=== PATIENT | male | born 1970 | race Caucasian/White ===

== ENCOUNTER → 2016-05-02 | Outpatient (CLI) | payer OTHER ==
[~2016-05-02] MED LIST: ACETAMINOPHEN-H1 TA2 PO; ALDACTONE25 M1 PO; AMLODIPINE BESYL5 MG PO; AMLODIPINE5 MG PO; AMOXICILLIN500 MG PO; ASPIRIN CHEWABL81 MG PO; Aquaphor T; BACTRIM DS 8001 TA1 PO; BP MED; Bactroban Oint22 GM T; CARVEDILOL6.25 MG PO; CIPROFLOXACIN500 MG PO; COREG12.5 M1 PO; COREG6.25 MG PO; FUROSEMIDE40 MG PO; GABAPENTIN100 M2 PO; HUMALOG100 U/ML SC; IMDUR SA60 M1 PO; INSULIN-HUMA100 U/ML SC; K-TAB20 MEQ PO; KEFLEX500 MG PO; KENALOG0.1% TP; LANTUS100 U/ML SC; LASIX20 MG PO; LASIX40 MG PO; LIPITOR20 MG PO; LISINOPRIL40 MG PO; MAXIPIME2 G1 IJ; MELOXICAM7.5 MG PO; METFORMIN HCL500 MG PO; METFORMIN500 MG PO; METFORMIN750 MG PO; NEURONTIN100 MG PO; NEXIUM40 MG PO; NOVOLIN 70100 UNIT/1 SC; OMEPRAZOLE D/R20 MG PO; POTASSIUM CHLO10 ME5 PO; SYNTHROID,LEVO75 MCG PO; ULTRAM50 MG PO; VICODIN 5/500 505 MG PO; VISTARIL50 MG PO; VITAMIN D5000 UNIT PO; VITAMIN D50000 I3 PO; [UNRECOGNIZED DRUG - SUPPLY] MC
[2016-05-02 07:59] LABS: ALBUMIN 3.5 gm/dl (3.1-4.5); BUN 20 mg/dl (7-24); CARBON DIOXIDE 29 mmol/L (21-32); CHLORIDE 100 mmol/L (98-107); EST GLOM FILT AFRICAN AMERICAN > 60 ml/min; GLUCOSE 241 mg/dL (65-99); PHOSPHOROUS 2.7 mg/dL (2.5-4.9); POTASSIUM 4.6 mmol/L (3.5-5.1); SODIUM 140 mmol/L (136-145)
== END | disposition home or self-care (01) ==
LOC: LAB 07:06
PROVIDERS: Internal Medicine Nephrology
DX: N18.6 End stage renal disease (principal)

== ENCOUNTER → 2016-05-12 | Day surgery (SDC) | payer OTHER ==
[2016-05-12 12:09] VITALS: BP 114/70
== END | disposition home or self-care (01) ==
LOC: SDC 05-05 03:06
DX: Z45.2 Encounter for adjustment and management of vascular access device (principal)

== ENCOUNTER 2016-11-10 17:24 | Inpatient (IN) | payer OTHER ==
[~2016-11-10] VITALS: Ht 167.6 cm; Wt 197.5 kg
--- NOTE | ~2016-11-10 | CON ---
[place], [place] REPORT OF CONSULTATION NAME: LAVINIA GOODRICH UNIT #: [id number] ROOM: 424 DOCTOR: ADAIR DAN,JULY BIRTHDATE: [birth year] DOS: 11/11/2016 HISTORY OF PRESENT ILLNESS: This is a patient who is admitted from home with temperature of 103, left leg swelling, pain and redness over the last 3-4 days. ID is consulted for left leg cellulitis. Most of history is obtained from the chart, some obtained from the patient, as his speech is very difficult to understand. He has had a prior history of cellulitis. He was hospitalized in March and developed acute CHF exacerbation, was diuresed and suffered acute kidney injury. He was temporary on hemodialysis, for which he was transferred to [facility], that has since improved. He is off dialysis. His blood cultures are negative. He was started on Zosyn and vancomycin at the time of admission. PAST MEDICAL HISTORY: As above, as well as hypertension, hyperlipidemia, morbid obesity, COPD, on chronic O2, diabetes, mandibular surgery. SOCIAL HISTORY: He chews one to two cans of tobacco per day since he was a child. No alcohol. No illicit drug use. Nonsmoker. FAMILY MEDICAL HISTORY: Brother at age 52 from leukemia. Father at age of 38 from lung disease. There is also a family history of diabetes and heart disease. CURRENT MEDICATIONS: Include aspirin, Synthroid, Prilosec, Lipitor, Neurontin, insulin, vitamin D, Zosyn, vancomycin, heparin, Restoril, Zofran, Tylenol. LABORATORY DATA: WBC is 16.3, platelets 207. BUN 38, creatinine of 3.12. AST 62, ALT 41. REVIEW OF SYSTEMS: As above in history of present illness. He states he has been nauseated, has not eaten in approximately 5 days, that is improving. He has also had a few emesis. No diarrhea. No rash or itch. He has again left lower extremity redness, pain and swelling for the last several days as well as fever. Temp max here has been 103. He does have some shortness of breath. He is currently on BiPAP. He is on chronic O2 at home. No cough. Further review of systems is unremarkable. PHYSICAL EXAMINATION: VITAL SIGNS: Show temp 98.0, pulse 96, respirations 20, BP 155/118. GENERAL: A 46-year-old morbidly obese male, in no acute distress, nontoxic in appearance. HEAD, EYES, EARS, NOSE AND THROAT: Normocephalic. No thrush. Missing most of the teeth. NECK: Supple. LUNGS: Clear to auscultation bilaterally. Respirations even and unlabored. HEART: Difficult to auscultation given body habitus, but regular rhythm. No murmur appreciated. ABDOMEN: Large, soft, nontender, positive bowel sounds. EXTREMITIES: Right lower extremity +2 to 3 edema, left lower extremity +3 to 4 edema. Left lower extremity with redness and swelling, which extends to the [place], [place] REPORT OF CONSULTATION NAME: LAVINIA GOODRICH UNIT #: [id number] ROOM: [facility] DOCTOR: ADAIR DANJULY BIRTHDATE: [birth year] thigh. No open wounds. SKIN: Otherwise warm, dry, free of rashes. ASSESSMENT: Left lower extremity cellulitis. PLAN: Given his recent recovery from acute kidney injury and current creatinine of 3.5, I do not think vancomycin is a good idea at this point given the doses that would be needed to obtain adequate therapeutic levels on the patient. I discussed with pharmacy. Teflaro is available. We will change to Zosyn and vancomycin over to Teflaro. Case discussed with Dr. Jose Maguire. RODDY BORRERO CNP JOSE MAGUIRE MD CM:CONSTR:REPORT OF CONSULTATION 1726 11/12/16 0429 interface
--- NOTE | ~2016-11-10 | PROC NOTE ---
[place], [place] PROCEDURE NOTE NAME: LAVINIA GOODRICH UNIT #: [id number] ROOM: [place] [address] DOCTOR: LARISA HOGAN CRNA BIRTHDATE: [birth year] DOS: INTUBATION NOTE Call to intubate the patient for acute hypoxic respiratory failure. The patient on arrival was on oxygen via BiPAP with a saturation of 94%. On assessment, the patient with a very large habitus, weighing approximately 200 kilos, have a Mallampati 4 airway and appeared very anterior. In light of this, it was decided to do an awake fiberoptic intubation. Oropharynx anesthetized via local anesthetic with a combination of 5% lidocaine cream to the tongue and posterior tongue structures, 4% lidocaine, approximately 5 mL aerosolized to the posterior oropharynx and the nasopharynx. Topical 4% lidocaine pledget placed in the posterior tonsillar fossa with a Minesh forceps for complete numbing of the upper airway. The patient sedated with Versed 2 mg. Fiberoptic intubation accomplished without difficulty with a 7.5 mm ET tube. Tube secured in place at 22 cm at the lip. The patient with bilateral breath sounds. The patient oxygen saturation improving to 98%. The patient then sedated with propofol 50 mg and rocuronium 50 mg. The patient placed on a propofol sedation per the hospitalist. The patient tolerated the procedure well. LARISA HOGAN CRNA CM:PROCNOTE:PROCEDURE NOTE [id number] LARISA HOGAN CRNA
[2016-11-10 17:39] VITALS: BP 107/50
[2016-11-10 18:17] LABS: HEMATOCRIT 43.8 % (42.0-52.0); HEMOGLOBIN 13.3 g/dl (14.0-18.0); MEAN CELL VOLUME 82.6 fl (80.0-94.0); MEAN CORPUSCULAR HGB 25.1 pg (27.0-31.0); MEAN CORPUSCULAR HGB CONC 30.4 g/dl (33.0-37.0); MEAN PLATELET VOLUME 9.9 fl (9.6-12.3); PLATELET COUNT AUTOMATED 250 10*3/uL (130-400); RED CELL DISTRI WIDTH 15.9 % (0-14.5); WHITE BLOOD COUNT 16.5 10*3/uL (4.8-10.8)
[2016-11-10 18:36] LABS: ALBUMIN 3.1 gm/dl (3.1-4.5); BILIRUBIN, TOTAL 1.1 mg/dl (0.2-1.0); CKMB 0.5 ng/ml (0.5-3.6); POTASSIUM 3.8 mmol/L (3.5-5.1); TOTAL PROTEIN 7.7 gm/dL (6.4-8.2); TROPONIN I 0.031 ng/ml (<0.045)
[2016-11-10 18:38] LABS: HYPOCHROMIA SLIGHT; LYMPHOCYTE # 0.2 10*3/uL (1.3-4.4); MONOCYTE # 0.7 10*3/uL (0.1-1.0); NEUTROPHIL # 15.7 10*3/uL (2.3-7.9); NEUTROPHILS 95 % (47-73); PLATELET SUFFICIENCY NORMAL (NORMAL); POLYCHROMASIA SLIGHT; TOTAL CELLS COUNTED 100 #CELLS; VACUOLATION OF NEUTROPHILS SLIGHT
[2016-11-10 19:30] VITALS: BP 111/39
[2016-11-10 20:15] LABS: LA>2 REFLEX 2 HR DRAW NOW
[2016-11-10 21:40] VITALS: BP 123/51
[2016-11-10 21:45] VITALS: BP 106/54
[2016-11-11] VITALS: BP 141/58
[2016-11-11 01:30] VITALS: BP 108/69
[2016-11-11 04:30] VITALS: BP 114/83
[2016-11-11 07:31] LABS: HEMOGLOBIN 12.1 g/dl (14.0-18.0); MEAN CELL VOLUME 84.7 fl (80.0-94.0); MEAN CORPUSCULAR HGB CONC 29.5 g/dl (33.0-37.0); MEAN PLATELET VOLUME 9.9 fl (9.6-12.3); PLATELET COUNT AUTOMATED 207 10*3/uL (130-400); RED BLOOD COUNT 4.84 10*6/uL (4.50-5.90); RED CELL DISTRI WIDTH 16.3 % (0-14.5); WHITE BLOOD COUNT 16.3 10*3/uL (4.8-10.8)
[2016-11-11 07:45] LABS: HEMOGLOBIN A1c 11.7 % (4.8-5.6)
[2016-11-11 07:53] LABS: ALBUMIN 2.9 gm/dl (3.1-4.5); BILIRUBIN, TOTAL 0.8 mg/dl (0.2-1.0); MAGNESIUM 1.7 mg/dL (1.5-2.1); PHOSPHOROUS 6.9 mg/dL (2.5-4.9); POTASSIUM 4.5 mmol/L (3.5-5.1); TOTAL PROTEIN 7.3 gm/dL (6.4-8.2)
[2016-11-11 08:01] LABS: LYMPHOCYTE # 0.3 10*3/uL (1.3-4.4); NEUTROPHILS 92 % (47-73); PLATELET SUFFICIENCY NORMAL (NORMAL); TOTAL CELLS COUNTED 100 #CELLS
[2016-11-11 08:03] LABS: INTERNATIONAL NORM RATIO 1.1 (2.0-3.5); PROTHROMBIN TIME 11.6 SECONDS (9.0-12.4)
[2016-11-11] MEDS ORDERED: BASAGLAR K100 UNIT/1 SQ (10:48)
[2016-11-11 12:00] VITALS: BP 124/76
[2016-11-11 16:00] VITALS: BP 155/118
[2016-11-11 20:00] VITALS: BP 110/75
[2016-11-12] VITALS: BP 110/75
[2016-11-12 03:17] LABS: ABG CO2 CONTENT 23.9 mmol/L (23-27); ABG HCO3 21.8 mmol/l (22-26); ARTERIAL BLOOD GAS PO2 64.5 mmHg (80-90)
[2016-11-12 03:22] LABS: ABG BASE EXCESS -7.8 mmol/L (-2.0-2.0); ABG TEMPERATURE 100.3 F (98.0-99.0)
[2016-11-12 03:26] LABS: ARTERIAL BLOOD GAS PH 7.141 (7.35-7.45)
[2016-11-12 06:15] LABS: BASO % 0.2 % (0.0-1.0); HEMATOCRIT 40.7 % (42.0-52.0); HEMOGLOBIN 11.9 g/dl (14.0-18.0); IG # 0.2 10*3/uL (0.0-0.1); LYMPH # 0.4 10*3/uL (1.3-4.4); LYMPH % 3.6 % (27.0-41.0); MEAN CORPUSCULAR HGB 25.2 pg (27.0-31.0); MEAN CORPUSCULAR HGB CONC 29.2 g/dl (33.0-37.0); MEAN PLATELET VOLUME 10.1 fl (9.6-12.3); MONO # 0.9 10*3/uL (0.1-1.0); MONO % 7.3 % (3.0-9.0); NEUT # 10.8 10*3/uL (2.3-7.9); NEUT % 87.4 % (47.0-73.0); PLATELET COUNT AUTOMATED 179 10*3/uL (130-400); RED BLOOD COUNT 4.73 10*6/uL (4.50-5.90); RED CELL DISTRI WIDTH 16.5 % (0-14.5); WHITE BLOOD COUNT 12.3 10*3/uL (4.8-10.8)
[2016-11-12 06:30] LABS: ALBUMIN 2.6 gm/dl (3.1-4.5); PHOSPHOROUS 8.7 mg/dL (2.5-4.9); POTASSIUM 5.2 mmol/L (3.5-5.1)
[2016-11-12 07:52] LABS: BILIRUBIN NEGATIVE (NEGATIVE); BLOOD 1+ (NEGATIVE); CLARITY CLOUDY (CLEAR); COLOR YELLOW (YELLOW); GLUCOSE NEGATIVE (NEGATIVE); KETONE NEGATIVE (NEGATIVE); LEUKO ESTERASE NEGATIVE (NEGATIVE); NITRITE NEGATIVE (NEGATIVE); PROTEIN 2+ (NEGATIVE); SPECIFIC GRAVITY >= 1.030 (1.005-1.030); UROBILINOGEN 0.2 E.U./dl (0.2-1.0)
[2016-11-12 07:59] LABS: BACTERIA 1+
[2016-11-12 08:00] LABS: URINE REFLEX COMMENT YES (NO)
[2016-11-12 08:56] LABS: ABG CO2 CONTENT 23.1 mmol/L (23-27); ABG HCO3 21.2 mmol/l (22-26); ABG TEMPERATURE 98.1 F (98.0-99.0); ARTERIAL BLOOD GAS PO2 66.8 mmHg (80-90)
[2016-11-12 09:01] LABS: ABG BASE EXCESS -7.7 mmol/L (-2.0-2.0); ARTERIAL BLOOD GAS PH 7.17 (7.35-7.45)
[2016-11-12 10:25] LABS: ABG CO2 CONTENT 22.5 mmol/L (23-27); ABG HCO3 20.7 mmol/l (22-26)
[2016-11-12 10:29] LABS: ABG BASE EXCESS -7.8 mmol/L (-2.0-2.0)
[2016-11-12 10:30] LABS: ARTERIAL BLOOD GAS PH 7.185 (7.35-7.45)
[2016-11-12 12:00] VITALS: BP 91/50
== END 2016-11-12 13:50 | disposition short-term general hospital (02) | DRG 871 ==
LOC: ED 17:24 → EDHOLD 19:28 → 4E 19:38 → ICCU 11-12 09:10
PROVIDERS: Hospitalist; Internal Medicine; Physician Assistant; Student in an Organized Health Care Education/Training Program
PROC: 0BH17EZ Insertion of Endotracheal Airway into Trachea, Via Natural or Artificial Opening (ICD-10-PCS; principal; 2016-11-10)
PROC: 5A1935Z Respiratory Ventilation, Less than 24 Consecutive Hours (ICD-10-PCS; 2016-11-10)
DX: A41.9 Sepsis, unspecified organism (principal); N17.0 Acute kidney failure with tubular necrosis; J96.21 Acute and chronic respiratory failure with hypoxia; J96.22 Acute and chronic respiratory failure with hypercapnia; L03.116 Cellulitis of left lower limb; E87.1 Hypo-osmolality and hyponatremia; E66.2 Morbid (severe) obesity with alveolar hypoventilation; Z68.44 Body mass index [BMI] 60.0-69.9, adult; R65.20 Severe sepsis without septic shock; D64.9 Anemia, unspecified; Z71.6 Tobacco abuse counseling; K21.9 Gastro-esophageal reflux disease without esophagitis; E78.5 Hyperlipidemia, unspecified; E11.65 Type 2 diabetes mellitus with hyperglycemia; Z79.4 Long term (current) use of insulin; Z72.89 Other problems related to lifestyle; Z80.6 Family history of leukemia; Z83.6 Family history of other diseases of the respiratory system; Z83.3 Family history of diabetes mellitus; Z99.81 Dependence on supplemental oxygen; E11.51 Type 2 diabetes mellitus with diabetic peripheral angiopathy without gangrene; F17.220 Nicotine dependence, chewing tobacco, uncomplicated; Z79.899 Other long term (current) drug therapy; I11.0 Hypertensive heart disease with heart failure; I50.9 Heart failure, unspecified

== ENCOUNTER → 2017-02-23 | Day surgery (SDC) | payer OTHER ==
[~2017-02-23] VITALS: Ht 180.3 cm; Wt 157.3 kg
[~2017-02-23] MED LIST changes: +ACIDOPHILUS1 EAC4 PO; +ALDACTONE25 MG PO; +BASAGLAR K100 UNIT/1 SQ; +BUMETANIDE1 MG PO; +CIPRO500 MG PO; +COREG25 MG PO; +COUMADIN4 M2 PO; +COUMADIN5 M2 PO; +DAKIN'S473 M1 MC; +HUMALOG100 UNIT/2 SQ; +HUMULIN N100 UNIT/1 SQ; +LEVEMIR100 UNIT/1 SC; +LIPITOR40 MG PO; +MGO400 MG PO; +NEURONTIN300 MG PO; +NORVASC2.5 MG PO; +NORVASC5 MG PO; +OXYCODONE HCL10 M1 PO; +PAXIL20 M1 PO; +PROTONIX40 MG PO; +SANTYL30 GM TP; +STRESS B WITH1 EACH PO; +Synthroid,Lev100 MCG PO; +VITAMIN D350000 UNIT PO
--- NOTE | ~2017-02-23 | CON ---
[place], [place] REPORT OF CONSULTATION NAME: LAVINIA GOODRICH UNIT #: [id number] ROOM: DOCTOR: FREDA HARGROVEARNEL BIRTHDATE: [birth year] DOS: HISTORY OF PRESENT ILLNESS: The patient has presented with chief complaint of distress with existing gastrostomy tube to abdomen. The patient has been in fpc, has regained his swallow and activity and on regular diet. I have been asked for evaluation of patient for removal of PEG tube. PAST MEDICAL HISTORY: Morbid obesity, borderline anemia, Pickwickian syndrome, nicotine dependency despite renal insufficiency, cellulitis of lower extremities, venous insufficiency, dyslipidemia, hypertension, gastroesophageal reflux, sleep apnea as well, peripheral vascular disease and diabetes mellitus. PAST SURGICAL HISTORY: Mandibular surgery. SOCIAL HISTORY: Nicotine dependence, chewing tobacco, alcohol consumer. FAMILY HISTORY: Noncontributory. ALLERGIES: No known medication. MEDICATIONS: List has been reviewed. REVIEW OF SYSTEMS: HEENT: Denies double vision, blurred vision. RESPIRATORY: Denies acute shortness of breath at the present time. CARDIOVASCULAR: Denies acute chest pain. DIGESTIVE SYSTEM: Regain of swallow status post PEG tube. PHYSICAL EXAMINATION: GENERAL: Super-morbid obesity. HEENT: Head normocephalic, nontraumatic. Mouth and buccal mucosa benign. NECK: Supple, no thyromegaly, no cervical lymphadenopathy. CHEST: Symmetric anatomy, equal expansion. No wheeze. No rhonchi. HEART: Normal sinus rhythm, no gallop, no murmur. ABDOMEN: Morbidly obese, large, soft. No hepato-organomegaly. PEG tube is in place and agitated at the site. EXTREMITIES: Some stasis dermatitis and edema of 1+. NEUROLOGIC: Alert, oriented to time, place, person. Sensory and motor intact. Cranial nerves 2-12 intact. Agitating gastric tube and regain of swallow by patient to solid food. OTHER ADJUNCTIVE DIAGNOSES: As outlined in the paragraph of past medical and surgical history. IMPRESSION: Malfunctioning PEG tube, status post removal dressing of the site as identified above. PLAN AND DISCUSSION: At this stage, anterior abdominal wall aseptically was prepped with Betadine and the gastrostomy tube [place] 20 was percutaneously [place], [place] REPORT OF CONSULTATION NAME: LAVINIA GOODRICH UNIT #: [id number] ROOM: DOCTOR: FREDA HARGROVE,ARNEL BIRTHDATE: [birth year] pulled out. The site was saturated with Neosporin, pressure banding with dressing by physician performed. The patient to go back to the fpc. The patient to have dressing of the site every day until site heals and follow up as outpatient otherwise. Thank you very much indeed. ARNEL BARBA MD CM:CONSTR:REPORT OF CONSULTATION 1308 02/27/17 0411 interface
[2017-02-23 10:00] VITALS: BP 143/67
== END | disposition home or self-care (01) ==
LOC: SDC 02-19 10:15
DX: K94.23 Gastrostomy malfunction (principal); E66.01 Morbid (severe) obesity due to excess calories; E66.2 Morbid (severe) obesity with alveolar hypoventilation; Z68.42 Body mass index [BMI] 45.0-49.9, adult; I10 Essential (primary) hypertension; K21.9 Gastro-esophageal reflux disease without esophagitis; J44.9 Chronic obstructive pulmonary disease, unspecified; E11.9 Type 2 diabetes mellitus without complications; Z83.3 Family history of diabetes mellitus; Z80.9 Family history of malignant neoplasm, unspecified; Z87.891 Personal history of nicotine dependence

== ENCOUNTER 2017-03-02 10:40 | Inpatient (IN) | payer OTHER ==
[~2017-03-02] VITALS: Ht 182.8 cm; Wt 157.6 kg
--- NOTE | ~2017-03-02 | CON ---
[place], [place] REPORT OF CONSULTATION NAME: LAVINIA GOODRICH UNIT #: [id number] ROOM: 420 DOCTOR: TING HARGROVE,JOSE [place] BIRTHDATE: [birth year] DOS: 03/02/2017 ADDENDUM After reviewing the labs, x-rays, microbiology and chart, I agree with the above plans as described. We will follow the patient up clinically and adjust accordingly. JOSE MAGUIRE MD CM:CONSTR:REPORT OF CONSULTATION 1925 03/05/17 1104 interface
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
[~2017-03-02 10:40] MED LIST changes: -ACIDOPHILUS1 EAC4 PO; -COREG25 MG PO; -COUMADIN5 M2 PO; -DAKIN'S473 M1 MC; -HUMALOG100 UNIT/2 SQ; -HUMULIN N100 UNIT/1 SQ; -LEVEMIR100 UNIT/1 SC; -LIPITOR40 MG PO; -MGO400 MG PO; -OXYCODONE HCL10 M1 PO; -PROTONIX40 MG PO; -SANTYL30 GM TP; -STRESS B WITH1 EACH PO; -VITAMIN D350000 UNIT PO
[2017-03-02 11:00] VITALS: BP 122/69
[2017-03-02 11:09] LABS: BILIRUBIN NEGATIVE (NEGATIVE); BLOOD 2+ (NEGATIVE); CLARITY CLEAR (CLEAR); COLOR YELLOW (YELLOW); GLUCOSE NEGATIVE (NEGATIVE); KETONE NEGATIVE (NEGATIVE); LEUKO ESTERASE TRACE (NEGATIVE); NITRITE NEGATIVE (NEGATIVE); UROBILINOGEN 0.2 E.U./dl (0.2-1.0)
[2017-03-02 11:20] LABS: BACTERIA TRACE; RBC 16-20 rbc/hpf (0-2); YEAST 3+
[2017-03-02 11:22] LABS: BASO % 0.3 % (0.0-1.0); EOS # 0.2 10*3/uL (0.0-0.4); EOS % 1.7 % (1.0-4.0); HEMOGLOBIN 10.3 g/dl (14.0-18.0); LYMPH # 1.2 10*3/uL (1.3-4.4); LYMPH % 9.1 % (27.0-41.0); MEAN CELL VOLUME 88.6 fl (80.0-94.0); MEAN CORPUSCULAR HGB 28.5 pg (27.0-31.0); MEAN CORPUSCULAR HGB CONC 32.2 g/dl (33.0-37.0); MEAN PLATELET VOLUME 9.5 fl (9.6-12.3); MONO # 0.9 10*3/uL (0.1-1.0); MONO % 7.1 % (3.0-9.0); NEUT # 10.2 10*3/uL (2.3-7.9); NEUT % 81.3 % (47.0-73.0); PLATELET COUNT AUTOMATED 358 10*3/uL (130-400); RED BLOOD COUNT 3.61 10*6/uL (4.50-5.90); RED CELL DISTRI WIDTH 15.9 % (0-14.5); WHITE BLOOD COUNT 12.6 10*3/uL (4.8-10.8)
--- NOTE | 2017-03-02 11:27 | NUR ---
LA 2.8 DR CHAMBERLAIN NOTIFIED
[2017-03-02 11:37] LABS: ALKALINE PHOSPHATASE 101 U/L (45-117); BUN 19 mg/dl (7-24); CHLORIDE 100 mmol/L (98-107); CREATININE 0.95 mg/dL (0.70-1.30); POTASSIUM 4.1 mmol/L (3.5-5.1); SGOT/AST 16 IU/L (3-35); SGPT/ALT 29 U/L (12-78); SODIUM 136 mmol/L (136-145); TOTAL PROTEIN 7.7 gm/dL (6.4-8.2)
--- NOTE | 2017-03-02 15:04 | NUR ---
A 46, admitted to , under the services of TRIPP Lugo DO with a diagnosis of INFECTED DECUBITIS ULCER, UTI,SEVERE SEPSIS. Chief complaint is WOUND-SKIN DRAINAGE. Patient arrived via bed from ER. Monitor applied. Initial assessment completed. Vital signs taken and recorded. TRIPP LUGO DO notified of admission to the unit. Orders received. See assessment for past medical history, medications and allergies. Patient and/or family oriented to unit. [facility] visitation policy reviewed. Clothing/patient valuable form completed. HÉCTOR JOHNSON
[2017-03-02] MEDS ORDERED: COUMADIN5 M2 PO (15:36)
[2017-03-02] MEDS ORDERED: NORVASC2.5 MG PO (15:37)
[2017-03-02] MEDS ORDERED: NORVASC5 MG PO (15:38)
--- NOTE | 2017-03-02 15:42 | NUR ---
OFFICE STAFF WAS NOTIFIED OF WOUND CARE CONSULT. RESPONSE OF NOTIFICATION WAS LEFT MESSAGE ON ANSWERING SERVICE. HÉCTOR JOHNSON
--- NOTE | 2017-03-02 15:45 | NUR ---
DR CALLES NOTIFIED OF LACTIC ACID 4.2
--- NOTE | 2017-03-02 15:49 | NUR ---
PT WENT FOR CT
--- NOTE | 2017-03-02 15:52 | NUR ---
PHYSICIAN WAS NOTIFIED OF DR. RODDY BORRERO CONSULT. RESPONSE OF NOTIFICATION WAS SHE WAS ON FLOOR.. HÉCTOR JOHNSON
--- NOTE | 2017-03-02 15:55 | NUR ---
PER DR MARLI BOSE TO CONTINUE WOUND ORDERS FROM LONGTERM
[2017-03-02 16:00] VITALS: BP 113/87
[2017-03-02] MEDS ORDERED: MGO400 MG PO (16:01)
[2017-03-02] MEDS ORDERED: LIPITOR40 MG PO (16:01)
[2017-03-02] MEDS ORDERED: HUMULIN N100 UNIT/1 SQ (16:02)
[2017-03-02] MEDS ORDERED: VITAMIN D350000 UNIT PO (16:04)
[2017-03-02] MEDS ORDERED: ASPIRIN CHEWABL81 MG PO (16:05)
[2017-03-02] MEDS ORDERED: ACIDOPHILUS1 EAC4 PO (16:06)
[2017-03-02] MEDS ORDERED: LEVEMIR100 UNIT/1 SC (16:07)
[2017-03-02] MEDS ORDERED: HUMALOG100 UNIT/2 SQ (16:08)
--- NOTE | 2017-03-02 16:08 | NUR ---
PER DR CALLES HE ALREADY SPOKE WITH DR GARCIA AND I DO NOT NEED TO CALL HIM.
[2017-03-02] MEDS ORDERED: STRESS B WITH1 EACH PO (16:09)
[2017-03-02] MEDS ORDERED: OXYCODONE HCL10 M1 PO (16:09)
[2017-03-02] MEDS ORDERED: COREG12.5 M1 PO (16:11)
[2017-03-02] MEDS ORDERED: COREG25 MG PO (16:11)
--- NOTE | 2017-03-02 16:15 | NUR ---
DR CALLES NOTIFIED LACTIC ACID 2.5
[2017-03-02] MEDS ORDERED: DAKIN'S473 M1 MC (16:22)
[2017-03-02] MEDS ORDERED: SANTYL30 GM TP (16:23)
--- NOTE | 2017-03-02 16:23 | NUR ---
MEDS REVIEWED WITH NURSE WIGGINS FROM [facility]
[2017-03-02] MEDS ORDERED: PROTONIX40 MG PO (16:57)
[2017-03-02] MEDS ORDERED: NEURONTIN300 MG PO (16:59)
--- NOTE | 2017-03-02 17:02 | NUR ---
dr bar updated on changes to med list per a second list from [facility] lipitor changed to daily neurotin and protonix added levemeir dose changed from 30 to 13 vit d 3 changed to weekly
--- NOTE | 2017-03-02 18:00 | NUR ---
DR CALLES NOTIFIED LACTIC ACID 2.6
--- NOTE | 2017-03-02 18:11 | NUR ---
PER DR CALLES MAKE PT NPO AND HOLD COUMADIN.
[2017-03-02 18:12] LABS: INTERNATIONAL NORM RATIO 1.2 (2.0-3.5)
--- NOTE | 2017-03-02 18:38 | NUR ---
NORCO GIVEN FOR C/O PAIN TO RIGHT BUTTOCKS OF 10/30. WILL CONT TO MONITOR. CALL LIGHT IN REACH.
--- NOTE | 2017-03-02 18:54 | NUR ---
SANTIAGO CALLED FROM [facility] AND STATED THAT SHE WILL CALL WHEN THEY HAVE A BED.
[2017-03-02 20:00] VITALS: BP 136/63
--- NOTE | 2017-03-02 20:00 | NUR ---
LAB RESULTS AND ORDERS REVIEWED
[2017-03-03] VITALS: BP 139/75
--- NOTE | 2017-03-03 03:37 | NUR ---
JULIUS FROM [facility] CALLED AT IS TIME AND GAVE A BED FOR THIS PATIENT ON THE MEDICAL SURGICAL UNIT. ASI CALLED . LIFE SCIENCE RESEARCH ASSISTANT CALLED AND AWARE.
--- NOTE | 2017-03-03 03:44 | NUR ---
NURSE TO NURSE GIVEN TO JULIUS AT [facility].
--- NOTE | 2017-03-03 04:44 | NUR ---
Discharge instructions reviewed with patient/family. Patient receptive and verbalizes understanding. Follow-up care arranged. Written instructions given to patient/family. LAUREN RHODES
== END 2017-03-03 04:38 | disposition short-term general hospital (02) | DRG 871 ==
LOC: ED 10:40 → 4E 14:17 → EDHOLD 14:17 → 4E 14:29
PROVIDERS: Emergency Medicine; Student in an Organized Health Care Education/Training Program; ADMIT Internal Medicine
PROC: 0H9NXZZ Drainage of Left Foot Skin, External Approach (ICD-10-PCS; principal; 2017-03-02)
DX: A41.9 Sepsis, unspecified organism (principal); L89.314 Pressure ulcer of right buttock, stage 4; E44.0 Moderate protein-calorie malnutrition; E11.22 Type 2 diabetes mellitus with diabetic chronic kidney disease; I50.30 Unspecified diastolic (congestive) heart failure; E66.2 Morbid (severe) obesity with alveolar hypoventilation; Z68.45 Body mass index [BMI] 70 or greater, adult; N39.0 Urinary tract infection, site not specified; L03.116 Cellulitis of left lower limb; Z99.81 Dependence on supplemental oxygen; E11.65 Type 2 diabetes mellitus with hyperglycemia; R65.20 Severe sepsis without septic shock; E78.5 Hyperlipidemia, unspecified; I73.9 Peripheral vascular disease, unspecified; Z80.6 Family history of leukemia; Z83.6 Family history of other diseases of the respiratory system; K21.9 Gastro-esophageal reflux disease without esophagitis; D64.9 Anemia, unspecified; F17.200 Nicotine dependence, unspecified, uncomplicated; Z79.4 Long term (current) use of insulin; I87.2 Venous insufficiency (chronic) (peripheral); N19 Unspecified kidney failure

== ENCOUNTER 2017-03-20 14:09 | Emergency (ER) | payer OTHER ==
[~2017-03-20] VITALS: Ht 182.8 cm; Wt 161.0 kg
[~2017-03-20 14:09] MED LIST changes: +ACIDOPHILUS1 EAC4 PO; +COREG25 MG PO; +COUMADIN5 M2 PO; +DAKIN'S473 M1 MC; +HUMALOG100 UNIT/2 SQ; +HUMULIN N100 UNIT/1 SQ; +LEVEMIR100 UNIT/1 SC; +LIPITOR40 MG PO; +MGO400 MG PO; +OXYCODONE HCL10 M1 PO; +PROTONIX40 MG PO; +SANTYL30 GM TP; +STRESS B WITH1 EACH PO; +VITAMIN D350000 UNIT PO
[2017-03-20 16:22] LABS: BASO # 0.1 10*3/uL (0.0-0.1); BASO % 0.5 % (0.0-1.0); EOS # 0.4 10*3/uL (0.0-0.4); EOS % 3.5 % (1.0-4.0); HEMATOCRIT 33.7 % (42.0-52.0); HEMOGLOBIN 10.6 g/dl (14.0-18.0); LYMPH # 1.4 10*3/uL (1.3-4.4); LYMPH % 13.7 % (27.0-41.0); MEAN CELL VOLUME 90.6 fl (80.0-94.0); MEAN CORPUSCULAR HGB 28.5 pg (27.0-31.0); MEAN CORPUSCULAR HGB CONC 31.5 g/dl (33.0-37.0); MONO # 0.8 10*3/uL (0.1-1.0); MONO % 8.1 % (3.0-9.0); NEUT # 7.4 10*3/uL (2.3-7.9); NEUT % 73.6 % (47.0-73.0); PLATELET COUNT AUTOMATED 307 10*3/uL (130-400); RED BLOOD COUNT 3.72 10*6/uL (4.50-5.90); RED CELL DISTRI WIDTH 16.1 % (0-14.5); WHITE BLOOD COUNT 10.1 10*3/uL (4.8-10.8)
[2017-03-20 16:32] LABS: BUN 14 mg/dl (7-24); CHLORIDE 99 mmol/L (98-107); CREATININE 1.01 mg/dL (0.70-1.30); POTASSIUM 3.8 mmol/L (3.5-5.1); SODIUM 135 mmol/L (136-145)
[2017-03-20 22:00] LABS: INTERNATIONAL NORM RATIO 1.3 (2.0-3.5)
== END 2017-03-21 00:45 | disposition short-term general hospital (02) ==
LOC: ED 14:09
PROVIDERS: Emergency Medicine; Student in an Organized Health Care Education/Training Program
DX: L89.159 Pressure ulcer of sacral region, unspecified stage (principal); L02.31 Cutaneous abscess of buttock

== ENCOUNTER 2017-06-20 16:00 | Inpatient (IN) | payer OTHER ==
[~2017-06-20] VITALS: Ht 182.8 cm; Wt 172.5 kg
--- NOTE | ~2017-06-20 | PR ---
[place], [place] PROGRESS NOTE [id number] #: [id number] ROOM: 426 DOCTOR: ADAIR DAN,JULY BIRTHDATE: [birth year] DOS: 06/23/2017 SUBJECTIVE: The patient is a 46-year-old morbidly obese male who is being followed for a right lower leg cellulitis, now with group G strep bacteremia. Repeat blood cultures from June 21 remain sterile. Positive blood cultures from June 20 showed group G strep that is resistant to clindamycin with a penicillin DILAN of less than 0.01. He is currently on vancomycin and Zosyn. He was also started on Lamisil oral due to concern for tinea pedis. Right leg culture is growing abundant gram-positive cocci. His WBCs have been improving, they are down to 10.4. Last vancomycin trough was 19.4. He is alert and oriented. He has difficulty breathing when he lays flat. No cough. No nausea, vomiting or diarrhea. He is on O2 via nasal cannula. He is morbidly obese, continues with pain in the right leg. Limited mobility due to his morbid obesity. His max temperature in the last 24 hours has been 99.0. No rash or itch. No shaking chills. CURRENT MEDICATIONS: Include Zosyn, vancomycin, Lamisil oral, Lovenox, Protonix, insulin, Restoril, Zofran, milk of mag, Dulcolax. LABORATORY DATA: Cultures as reviewed above. WBCs 10.4, platelets 505. BUN 8, creatinine 0.73, AST 98, ALT 123. Hepatitis panel was negative. Albumin 2.2. PHYSICAL EXAMINATION: VITAL SIGNS: Temperature 99.0, pulse 72, respirations 20, BP 149/86: GENERAL: A 46-year-old morbidly obese male, nontoxic in appearance. HEAD, EYES, EARS, NOSE AND THROAT: Normocephalic. No thrush. LUNGS: Clear to auscultation bilaterally. Respirations even and unlabored. HEART: Regular rhythm. No murmur appreciated. He is on O2 via nasal cannula. ABDOMEN: Huge, soft, nontender. EXTREMITIES: With edema to bilateral lower extremities. Right lower extremity with +4 edema with erythema and flat bullae consistent with strep cellulitis. No other open wounds. He does not have onychomycosis, but does have signs of possible tinea pedis. ASSESSMENT: Group G strep septicemia due to right lower extremity cellulitis. PLAN: We will narrow the antibiotics to penicillin 4 million units q. 4 hours, change Lamisil oral to Lamisil cream. This is more effective for tinea pedis as well as Lamisil can affect his LFTs, up the vancomycin and Zosyn. Follow up on repeat blood cultures. Given the clinical appearance, I doubt that there is any abscess in the leg. Case discussed with Dr. Jose Maguire. ADDENDUM After reviewing the chart and labs, I agree with the above plans as described. We will follow the patient up clinically and adjust accordingly. [place], [place] PROGRESS NOTE NAME: LAVINIA GOODRICH UNIT #: [id number] ROOM: 426 DOCTOR: ADAIR DANJULY BIRTHDATE: [birth year] RODDY BORRERO CNP JOSE MAGUIRE MD CM:PNTRANS 1547 1737 RODDY BORRERO CNP 06/24/17 0312 interface
[2017-06-20 16:16] VITALS: BP 121/53
[2017-06-20 17:05] LABS: HEMATOCRIT 36.1 % (42.0-52.0); HEMOGLOBIN 11.1 g/dl (14.0-18.0); MEAN CELL VOLUME 83.4 fl (80.0-94.0); MEAN CORPUSCULAR HGB 25.6 pg (27.0-31.0); MEAN CORPUSCULAR HGB CONC 30.7 g/dl (33.0-37.0); MEAN PLATELET VOLUME 9.6 fl (9.6-12.3); PLATELET COUNT AUTOMATED 404 10*3/uL (130-400); RED BLOOD COUNT 4.33 10*6/uL (4.50-5.90)
[2017-06-20 17:23] LABS: ALBUMIN 2.4 gm/dl (3.1-4.5); ALKALINE PHOSPHATASE 160 U/L (45-117); BUN 9 mg/dl (7-24); CHLORIDE 92 mmol/L (98-107); CREATININE 0.92 mg/dL (0.70-1.30); POTASSIUM 3.2 mmol/L (3.5-5.1); SGOT/AST 163 IU/L (3-35); SGPT/ALT 113 U/L (12-78); SODIUM 130 mmol/L (136-145); TOTAL PROTEIN 8.9 gm/dL (6.4-8.2)
[2017-06-20 17:24] LABS: TROPONIN I < 0.015 ng/ml (<0.045)
[2017-06-20 17:25] LABS: INTERNATIONAL NORM RATIO 1.1 (2.0-3.5); TOTAL CELLS COUNTED 100 #CELLS
[2017-06-20 17:27] LABS: PLATELET SUFFICIENCY NORMAL (NORMAL); ROULEAUX SLIGHT
[2017-06-20] MEDS ORDERED: ALDACTONE25 M1 PO (18:11)
[2017-06-20] MEDS ORDERED: BUMETANIDE1 MG PO (18:11)
[2017-06-20] MEDS ORDERED: METFORMIN HCL500 MG PO (18:11)
[2017-06-20] MEDS ORDERED: AMLODIPINE BESYL5 MG PO (18:11)
[2017-06-20] MEDS ORDERED: CARVEDILOL6.25 MG PO (18:12)
[2017-06-20] MEDS ORDERED: NOVOLIN 70100 UNIT/1 SQ (18:12)
[2017-06-20] MEDS ORDERED: OMEPRAZOLE40 MG PO (18:12)
[2017-06-20] MEDS ORDERED: ATORVASTATIN CA40 M1 PO (18:12)
[2017-06-20] MEDS ORDERED: LANTUS SOL100 UNIT/1 SQ (18:13)
[2017-06-20] MEDS ORDERED: PAROXETINE HCL20 MG PO (18:13)
[2017-06-20 18:47] VITALS: BP 119/60
[2017-06-20 19:30] VITALS: BP 119/58
[2017-06-21 00:19] VITALS: BP 123/43
[2017-06-21 07:39] LABS: BASO % 0.2 % (0.0-1.0); EOS # 0.1 10*3/uL (0.0-0.4); EOS % 0.4 % (1.0-4.0); HEMATOCRIT 33.3 % (42.0-52.0); HEMOGLOBIN 9.9 g/dl (14.0-18.0); LYMPH # 0.6 10*3/uL (1.3-4.4); MEAN CELL VOLUME 85.4 fl (80.0-94.0); MEAN CORPUSCULAR HGB 25.4 pg (27.0-31.0); MEAN CORPUSCULAR HGB CONC 29.7 g/dl (33.0-37.0); MEAN PLATELET VOLUME 9.6 fl (9.6-12.3); MONO # 0.8 10*3/uL (0.1-1.0); MONO % 6.1 % (3.0-9.0); NEUT # 10.9 10*3/uL (2.3-7.9); NEUT % 86.3 % (47.0-73.0); PLATELET COUNT AUTOMATED 392 10*3/uL (130-400); RED CELL DISTRI WIDTH 16.3 % (0-14.5); WHITE BLOOD COUNT 12.6 10*3/uL (4.8-10.8)
[2017-06-21 07:56] LABS: BUN 9 mg/dl (7-24); CHLORIDE 96 mmol/L (98-107); CHOLESTEROL 99 mg/dL (<200); CREATININE 0.78 mg/dL (0.70-1.30); PHOSPHOROUS 3.1 mg/dL (2.5-4.9); POTASSIUM 3.2 mmol/L (3.5-5.1); SODIUM 134 mmol/L (136-145); TRIGLYCERIDES 162 mg/dl (<150); VLDL CHOLESTEROL 32 mg/dL (6-40)
[2017-06-21 08:00] VITALS: BP 130/76
[2017-06-21 08:04] LABS: HDL CHOLESTEROL 9 mg/dl (40-60); LDL CHOLESTEROL 58 mg/dL (9-159)
[2017-06-21 09:07] LABS: VITAMIN D, 25-HYDROXY 13.9 ng/mL (30-100)
[2017-06-21 12:00] VITALS: BP 130/86
[2017-06-21 12:04] LABS: ALBUMIN 2.1 gm/dl (3.1-4.5); ALKALINE PHOSPHATASE 132 U/L (45-117); BUN 9 mg/dl (7-24); CHLORIDE 96 mmol/L (98-107); POTASSIUM 3.2 mmol/L (3.5-5.1); SGOT/AST 87 IU/L (3-35); SGPT/ALT 85 U/L (12-78); SODIUM 134 mmol/L (136-145); TOTAL PROTEIN 7.6 gm/dL (6.4-8.2)
[2017-06-21 16:00] VITALS: BP 128/57
[2017-06-21 20:36] VITALS: BP 130/68
[2017-06-22 00:22] VITALS: BP 136/75
[2017-06-22 06:53] LABS: BASO % 0.2 % (0.0-1.0); EOS # 0.1 10*3/uL (0.0-0.4); EOS % 0.6 % (1.0-4.0); HEMATOCRIT 34.7 % (42.0-52.0); HEMOGLOBIN 9.9 g/dl (14.0-18.0); LYMPH # 0.6 10*3/uL (1.3-4.4); LYMPH % 5.7 % (27.0-41.0); MEAN CELL VOLUME 85.7 fl (80.0-94.0); MEAN CORPUSCULAR HGB 24.4 pg (27.0-31.0); MEAN CORPUSCULAR HGB CONC 28.5 g/dl (33.0-37.0); MEAN PLATELET VOLUME 9.4 fl (9.6-12.3); MONO # 0.6 10*3/uL (0.1-1.0); MONO % 5.5 % (3.0-9.0); NEUT # 9.2 10*3/uL (2.3-7.9); NEUT % 86.2 % (47.0-73.0); PLATELET COUNT AUTOMATED 468 10*3/uL (130-400); RED BLOOD COUNT 4.05 10*6/uL (4.50-5.90); RED CELL DISTRI WIDTH 16.2 % (0-14.5); WHITE BLOOD COUNT 10.6 10*3/uL (4.8-10.8)
[2017-06-22 07:05] LABS: HEPATITIS B SURFACE AG Negative (Negative); HEPATITIS C VIRUS ANTIBODY <0.1 s/co (0.0-0.9)
[2017-06-22 07:09] LABS: ALBUMIN 2.1 gm/dl (3.1-4.5); ALKALINE PHOSPHATASE 148 U/L (45-117); BUN 6 mg/dl (7-24); CHLORIDE 96 mmol/L (98-107); CREATININE 0.77 mg/dL (0.70-1.30); PHOSPHOROUS 2.6 mg/dL (2.5-4.9); POTASSIUM 3.7 mmol/L (3.5-5.1); SGOT/AST 80 IU/L (3-35); SGPT/ALT 93 U/L (12-78); SODIUM 135 mmol/L (136-145); TOTAL PROTEIN 8.1 gm/dL (6.4-8.2)
[2017-06-22 08:00] VITALS: BP 137/74
[2017-06-22 12:00] VITALS: BP 142/69
[2017-06-22 16:00] VITALS: BP 133/74
[2017-06-22 20:00] VITALS: BP 161/68
[2017-06-23] VITALS: BP 138/85
[2017-06-23 06:21] LABS: HEMATOCRIT 34.6 % (42.0-52.0); MEAN CELL VOLUME 86.7 fl (80.0-94.0); MEAN CORPUSCULAR HGB 25.1 pg (27.0-31.0); MEAN CORPUSCULAR HGB CONC 28.9 g/dl (33.0-37.0); MEAN PLATELET VOLUME 9.1 fl (9.6-12.3); PLATELET COUNT AUTOMATED 505 10*3/uL (130-400); RED BLOOD COUNT 3.99 10*6/uL (4.50-5.90); RED CELL DISTRI WIDTH 16.5 % (0-14.5); WHITE BLOOD COUNT 10.4 10*3/uL (4.8-10.8)
[2017-06-23 06:35] LABS: ALBUMIN 2.2 gm/dl (3.1-4.5); ALKALINE PHOSPHATASE 161 U/L (45-117); BUN 8 mg/dl (7-24); CHLORIDE 97 mmol/L (98-107); CREATININE 0.73 mg/dL (0.70-1.30); POTASSIUM 4.1 mmol/L (3.5-5.1); SGOT/AST 98 IU/L (3-35); SGPT/ALT 123 U/L (12-78); SODIUM 135 mmol/L (136-145)
[2017-06-23 07:37] LABS: BASOPHILS 1 % (0-1); PLATELET SUFFICIENCY HIGH (NORMAL); ROULEAUX MODERATE; TOTAL CELLS COUNTED 100 #CELLS; TOXIC GRANULATION SLIGHT
[2017-06-23 08:00] VITALS: BP 148/86
[2017-06-23 12:00] VITALS: BP 149/86
[2017-06-23 16:00] VITALS: BP 145/83
== END 2017-06-23 17:29 | disposition left against medical advice (07) | DRG 871 ==
LOC: ED 16:00 → 4E 18:18 → EDHOLD 18:18 → 4E 18:38
PROVIDERS: Hospitalist; Internal Medicine Nephrology; Physician Assistant; Student in an Organized Health Care Education/Training Program
DX: A41.9 Sepsis, unspecified organism (principal); E43 Unspecified severe protein-calorie malnutrition; L89.153 Pressure ulcer of sacral region, stage 3; L89.311 Pressure ulcer of right buttock, stage 1; I50.32 Chronic diastolic (congestive) heart failure; E87.1 Hypo-osmolality and hyponatremia; L03.115 Cellulitis of right lower limb; E66.2 Morbid (severe) obesity with alveolar hypoventilation; Z68.42 Body mass index [BMI] 45.0-49.9, adult; R74.0 Nonspecific elevation of levels of transaminase and lactic acid dehydrogenase [LDH]; E87.6 Hypokalemia; K21.9 Gastro-esophageal reflux disease without esophagitis; E78.5 Hyperlipidemia, unspecified; E11.65 Type 2 diabetes mellitus with hyperglycemia; L89.511 Pressure ulcer of right ankle, stage 1; L89.890 Pressure ulcer of other site, unstageable; F17.200 Nicotine dependence, unspecified, uncomplicated; E11.51 Type 2 diabetes mellitus with diabetic peripheral angiopathy without gangrene; D47.3 Essential (hemorrhagic) thrombocythemia; I11.0 Hypertensive heart disease with heart failure; E83.41 Hypermagnesemia; E87.8 Other disorders of electrolyte and fluid balance, not elsewhere classified; Z79.4 Long term (current) use of insulin; Z83.6 Family history of other diseases of the respiratory system; Z83.3 Family history of diabetes mellitus; Z82.49 Family history of ischemic heart disease and other diseases of the circulatory system; Z80.8 Family history of malignant neoplasm of other organs or systems; Z71.6 Tobacco abuse counseling

== ENCOUNTER 2017-12-29 15:04 | Inpatient (IN) | payer OTHER ==
[~2017-12-29] VITALS: Ht 182.8 cm; Wt 206.6 kg
--- NOTE | ~2017-12-29 | EKG ---
[place], [place] ELECTROCARDIOGRAM REPORT NAME: LAVINIA GOODRICH UNIT #: [id number] ROOM: 508 DOCTOR: LAMAR DRAFT REPORT BIRTHDATE: [birth year] [facility] Test Date: 2017-12-29 Test Time: 15:34:47 Pat Name: LAVINIA GOODRICH Department: Room: 508 Gender: M Handwriting Expert: LEONA : 1970 Requested By: DANY LLOYD Order Number: [id number] Reading MD: Pamela Carvalho MD Measurements Intervals [place] Rate: 86 P: 12 [place]: 166 QRS: 3 QRSD: 114 T: 61 QT: 395 QTc: 473 Interpretive Statements Sinus rhythm Unifocal ventricular premature complexes Incomplete left bundle branch block Low voltage, precordial leads Artifact in lead(s) I,III,aVR,aVL,aVF and baseline wander in lead(s) I,III,aVR,aVL,aVF,V1,V2,V3,V4,V5,V6 Electronically Signed On 12-30-2017 6:29:28 PDT by Pamela Carvalho MD CM:EKGRPT:ELECTROCARDIOGRAM REPORT 1534 0629 DANY LEYVA DRAFT REPORT DANY LLOYD DO
--- NOTE | ~2017-12-29 | PR ---
[place], [place] PROGRESS NOTE NAME: LAVINIA GOODRICH [facility] #: [id number] UNIT #: [id number] ROOM: 508 DOCTOR: MATIAS MORTENSEN DPM BIRTHDATE: [birth year] DOS: 12/31/2017 SUBJECTIVE: This patient is seen today for chronic venous insufficiency and venous leg ulcers. The patient states he has had problems with his legs for quite some time. [facility] hospital. He states they have been trying to get fluid off of him while he is in the hospital. OBJECTIVE: EXTREMITIES: Pedal pulses are difficult to palpate due to dependent edema bilaterally. There is 3+ pitting edema noted in bilateral lower extremities. Negative Homans sign bilaterally. There is no erythema or increased temperature changes bilaterally consistent with chronic venous insufficiency including pigment changes and brawny edema. He has multiple open areas noted with the largest being overlying the right lateral malleolus. No bone is visible or palpable. No purulent drainage or malodor. Serous drainage is noted from the wounds. The right leg has more extensive wounds than the left. Sensation is diminished bilaterally. No signs of abscess or fluctuance. They cancelled his venous and arterial Dopplers because of his size. The patient is morbidly obese. ASSESSMENT AND PLAN: Type 2 diabetes with hyperglycemia, chronic venous insufficiency, venous leg ulcers bilaterally, dependent edema bilaterally. PLAN: Overall, the wounds are not infected and they appear to be slowly improving. Encouraged him to elevate his legs. Continue with diuresis per Internal Medicine. Continue with daily dressing changes as written for. From a Podiatry standpoint, the patient can be discharged. Would recommend him continue to follow at the [facility] for continued wound management. MATIAS MORTENSEN DPM CM:PNTRANS 1230 MATIAS MORTENSEN DPM 01/01/18 003 interface
[~2017-12-29 15:04] MED LIST changes: +ATORVASTATIN CA40 M1 PO; +LANTUS SOL100 UNIT/1 SQ; +NOVOLIN 70100 UNIT/1 SQ; +OMEPRAZOLE40 MG PO; +PAROXETINE HCL20 MG PO
[2017-12-29 15:44] VITALS: BP 131/80
[2017-12-29 15:50] LABS: BASO # 0.1 10*3/uL (0.0-0.1); BASO % 0.6 % (0.0-1.0); EOS # 0.3 10*3/uL (0.0-0.4); EOS % 2.6 % (1.0-4.0); HEMATOCRIT 41.6 % (42.0-52.0); HEMOGLOBIN 11.6 g/dl (14.0-18.0); LYMPH # 0.8 10*3/uL (1.3-4.4); LYMPH % 7.8 % (27.0-41.0); MEAN CELL VOLUME 83.4 fl (80.0-94.0); MEAN CORPUSCULAR HGB 23.2 pg (27.0-31.0); MEAN CORPUSCULAR HGB CONC 27.9 g/dl (33.0-37.0); MEAN PLATELET VOLUME 9.1 fl (9.6-12.3); MONO # 0.8 10*3/uL (0.1-1.0); MONO % 8.3 % (3.0-9.0); PLATELET COUNT AUTOMATED 395 10*3/uL (130-400); RED BLOOD COUNT 4.99 10*6/uL (4.50-5.90); RED CELL DISTRI WIDTH 16.5 % (0-14.5)
[2017-12-29 16:01] LABS: ACT PARTIAL THROMBO TIME 23.3 SECONDS (20.8-31.5)
[2017-12-29 16:05] LABS: ALBUMIN 3.2 gm/dl (3.1-4.5); ALKALINE PHOSPHATASE 97 U/L (45-117); BUN 12 mg/dl (7-24); CHLORIDE 91 mmol/L (98-107); CREATININE 0.93 mg/dL (0.70-1.30); LIPASE 101 U/L (73-393); POTASSIUM 4.1 mmol/L (3.5-5.1); SGOT/AST 29 IU/L (3-35); SGPT/ALT 80 U/L (12-78); SODIUM 133 mmol/L (136-145); TOTAL PROTEIN 8.1 gm/dL (6.4-8.2)
[2017-12-29 16:10] LABS: TROPONIN I < 0.015 ng/ml (<0.045)
[2017-12-29 16:57] VITALS: BP 124/72
[2017-12-29 17:45] VITALS: BP 123/68
[2017-12-29] MEDS ORDERED: TOUJEO SOL300 UNIT/1 SQ (18:31)
[2017-12-29 20:00] VITALS: BP 134/77
[2017-12-30] VITALS: BP 134/70
[2017-12-30 07:07] LABS: BASO % 0.3 % (0.0-1.0); EOS # 0.4 10*3/uL (0.0-0.4); EOS % 4.2 % (1.0-4.0); HEMATOCRIT 39.6 % (42.0-52.0); HEMOGLOBIN 10.9 g/dl (14.0-18.0); LYMPH # 0.5 10*3/uL (1.3-4.4); LYMPH % 6.1 % (27.0-41.0); MEAN CELL VOLUME 83.5 fl (80.0-94.0); MEAN CORPUSCULAR HGB CONC 27.5 g/dl (33.0-37.0); MEAN PLATELET VOLUME 9.2 fl (9.6-12.3); MONO # 0.8 10*3/uL (0.1-1.0); MONO % 9.1 % (3.0-9.0); NEUT % 79.4 % (47.0-73.0); NUCLEATED RED BLOOD CELL 0.3 % (0.0-0.0); PLATELET COUNT AUTOMATED 405 10*3/uL (130-400); RED BLOOD COUNT 4.74 10*6/uL (4.50-5.90); RED CELL DISTRI WIDTH 16.5 % (0-14.5); WHITE BLOOD COUNT 8.8 10*3/uL (4.8-10.8)
[2017-12-30 07:15] LABS: ALKALINE PHOSPHATASE 93 U/L (45-117); BUN 13 mg/dl (7-24); CHLORIDE 90 mmol/L (98-107); CHOLESTEROL 156 mg/dL (<200); CREATININE 0.87 mg/dL (0.70-1.30); FREE T4 1.04 ng/dl (0.76-1.46); POTASSIUM 4.2 mmol/L (3.5-5.1); SGOT/AST 25 IU/L (3-35); SGPT/ALT 62 U/L (12-78); SODIUM 134 mmol/L (136-145); TOTAL PROTEIN 7.5 gm/dL (6.4-8.2); TRIGLYCERIDES 215 mg/dl (<150); VLDL CHOLESTEROL 43 mg/dL (6-40)
[2017-12-30 07:20] LABS: HDL CHOLESTEROL 34 mg/dl (40-60); LDL CHOLESTEROL 79 mg/dL (9-159)
[2017-12-30 07:38] LABS: ACT PARTIAL THROMBO TIME 23.7 SECONDS (20.8-31.5)
[2017-12-30 08:11] LABS: VITAMIN D, 25-HYDROXY 14.8 ng/mL (30-100)
[2017-12-30 12:00] VITALS: BP 133/77
[2017-12-30 16:00] VITALS: BP 157/60
[2017-12-30 20:00] VITALS: BP 144/68
[2017-12-31] VITALS: BP 136/65
[2017-12-31 06:30] LABS: BASO # 0.1 10*3/uL (0.0-0.1); BASO % 0.7 % (0.0-1.0); EOS # 0.4 10*3/uL (0.0-0.4); EOS % 4.6 % (1.0-4.0); HEMATOCRIT 39.5 % (42.0-52.0); HEMOGLOBIN 10.8 g/dl (14.0-18.0); LYMPH # 0.8 10*3/uL (1.3-4.4); LYMPH % 9.2 % (27.0-41.0); MEAN CELL VOLUME 83.9 fl (80.0-94.0); MEAN CORPUSCULAR HGB 22.9 pg (27.0-31.0); MEAN CORPUSCULAR HGB CONC 27.3 g/dl (33.0-37.0); MEAN PLATELET VOLUME 9.3 fl (9.6-12.3); MONO # 0.9 10*3/uL (0.1-1.0); MONO % 10.7 % (3.0-9.0); NEUT # 6.4 10*3/uL (2.3-7.9); NEUT % 74.2 % (47.0-73.0); PLATELET COUNT AUTOMATED 366 10*3/uL (130-400); RED BLOOD COUNT 4.71 10*6/uL (4.50-5.90); RED CELL DISTRI WIDTH 16.4 % (0-14.5); WHITE BLOOD COUNT 8.6 10*3/uL (4.8-10.8)
[2017-12-31 06:43] LABS: BUN 12 mg/dl (7-24); CHLORIDE 92 mmol/L (98-107); CREATININE 0.69 mg/dL (0.70-1.30); POTASSIUM 4.5 mmol/L (3.5-5.1); SODIUM 132 mmol/L (136-145)
[2017-12-31] MEDS ORDERED: ATORVASTATIN CA40 M1 PO (13:33)
[2017-12-31] MEDS ORDERED: OMEPRAZOLE40 MG PO (13:33)
[2017-12-31] MEDS ORDERED: TEST STRIPS1 EACH MC (13:33)
[2017-12-31] MEDS ORDERED: ALDACTONE25 M1 PO (13:33)
[2017-12-31] MEDS ORDERED: PAXIL40 M1 PO (13:33)
[2017-12-31] MEDS ORDERED: PEN NEEDLE1 EAC2 MC (13:33)
[2017-12-31] MEDS ORDERED: AMLODIPINE BESYL5 MG PO (13:33)
[2017-12-31] MEDS ORDERED: NOVOLIN 70100 UNIT/1 SQ (13:33)
[2017-12-31] MEDS ORDERED: INSULIN SYRING1 EA20 MC (13:33)
[2017-12-31] MEDS ORDERED: BUMETANIDE1 MG PO (13:33)
[2017-12-31] MEDS ORDERED: CARVEDILOL6.25 MG PO (13:33)
[2017-12-31] MEDS ORDERED: ALCOHOL PADS1 EACH TD (13:33)
[2017-12-31] MEDS ORDERED: TOUJEO SOL300 UNIT/1 SQ (13:33)
[2017-12-31] MEDS ORDERED: ACCU-CHEK FAST1 EACH MC (13:33)
== END 2017-12-31 14:13 | disposition home or self-care (01) | DRG 291 ==
LOC: ED 15:04 → 5E 16:27 → EDHOLD 16:27 → 5E 17:19
PROVIDERS: Emergency Medicine; Internal Medicine
DX: I11.0 Hypertensive heart disease with heart failure (principal); E43 Unspecified severe protein-calorie malnutrition; E87.2 Acidosis; E87.1 Hypo-osmolality and hyponatremia; J96.11 Chronic respiratory failure with hypoxia; E66.2 Morbid (severe) obesity with alveolar hypoventilation; I49.3 Ventricular premature depolarization; E78.5 Hyperlipidemia, unspecified; K21.9 Gastro-esophageal reflux disease without esophagitis; E11.65 Type 2 diabetes mellitus with hyperglycemia; E87.8 Other disorders of electrolyte and fluid balance, not elsewhere classified; D64.9 Anemia, unspecified; I50.33 Acute on chronic diastolic (congestive) heart failure; R79.82 Elevated C-reactive protein (CRP); E11.51 Type 2 diabetes mellitus with diabetic peripheral angiopathy without gangrene; I87.2 Venous insufficiency (chronic) (peripheral); Z72.0 Tobacco use; Z71.6 Tobacco abuse counseling; Z79.4 Long term (current) use of insulin; Z99.81 Dependence on supplemental oxygen; Z82.49 Family history of ischemic heart disease and other diseases of the circulatory system; Z83.3 Family history of diabetes mellitus; Z80.6 Family history of leukemia; Z83.6 Family history of other diseases of the respiratory system; Z79.899 Other long term (current) drug therapy

== ENCOUNTER 2018-02-12 19:35 | Inpatient (IN) | payer OTHER ==
[~2018-02-12] VITALS: Ht 182.8 cm; Wt 194.7 kg
--- NOTE | ~2018-02-12 | EKG ---
[place], [place] ELECTROCARDIOGRAM REPORT NAME: LAVINIA GOODRICH UNIT #: [id number] ROOM: 427 DOCTOR: LAMAR DRAFT REPORT BIRTHDATE: [birth year] [facility] Test Date: 2018-02-12 Test Time: 20:00:05 Pat Name: LAVINIA GOODRICH Department: Room: 427 Gender: M System Archive Analyst: SS RESP : 1970 Requested By: ALDA DOWNING Order Number: [id number] Reading MD: Kelvin Sanchez MD Measurements Intervals [place] Rate: 94 P: 37 [place]: 169 QRS: 16 QRSD: 88 T: 55 QT: 349 QTc: 437 Interpretive Statements Sinus rhythm Low voltage, precordial leads Baseline wander in lead(s) V1,V3,V4 Compared to ECG 12/29/2017 15:34:47 Ventricular premature complex(es) no longer present Left bundle-branch block no longer present Electronically Signed On 02-15-2018 12:07:40 PDT by Kelvin Sanchez MD CM:EKGRPT:ELECTROCARDIOGRAM REPORT 99 120 ALDA DOWNING MD EPIPHANY DRAFT REPORT ALDA DOWNING MD
[~2018-02-12 19:35] MED LIST changes: +ACCU-CHEK FAST1 EACH MC; +ALCOHOL PADS1 EACH TD; +INSULIN SYRING1 EA20 MC; +PAXIL40 M1 PO; +PEN NEEDLE1 EAC2 MC; +TEST STRIPS1 EACH MC; +TOUJEO SOL300 UNIT/1 SQ
[2018-02-12 19:37] VITALS: BP 129/72
[2018-02-12 19:54] LABS: BILIRUBIN NEGATIVE (NEGATIVE); BLOOD TRACE-INTACT (NEGATIVE); CLARITY CLEAR (CLEAR); COLOR YELLOW (YELLOW); GLUCOSE 3+ (NEGATIVE); KETONE NEGATIVE (NEGATIVE); LEUKO ESTERASE NEGATIVE (NEGATIVE); NITRITE NEGATIVE (NEGATIVE); PH 5.5 (5.0-9.0); SPECIFIC GRAVITY <= 1.005 (1.005-1.030); UROBILINOGEN 0.2 E.U./dl (0.2-1.0)
[2018-02-12 20:04] LABS: BASO # 0.1 10*3/uL (0.0-0.1); BASO % 0.5 % (0.0-1.0); EOS # 0.4 10*3/uL (0.0-0.4); EOS % 3.6 % (1.0-4.0); HEMATOCRIT 39.5 % (42.0-52.0); HEMOGLOBIN 11.2 g/dl (14.0-18.0); LYMPH # 0.9 10*3/uL (1.3-4.4); LYMPH % 9.6 % (27.0-41.0); MEAN CELL VOLUME 81.1 fl (80.0-94.0); MEAN CORPUSCULAR HGB CONC 28.4 g/dl (33.0-37.0); MEAN PLATELET VOLUME 10.2 fl (9.6-12.3); MONO # 0.7 10*3/uL (0.1-1.0); MONO % 6.9 % (3.0-9.0); NEUT # 7.7 10*3/uL (2.3-7.9); PLATELET COUNT AUTOMATED 327 10*3/uL (130-400); RED BLOOD COUNT 4.87 10*6/uL (4.50-5.90); RED CELL DISTRI WIDTH 17.2 % (0-14.5); WHITE BLOOD COUNT 9.8 10*3/uL (4.8-10.8)
[2018-02-12 20:09] LABS: RBC 0-2 rbc/hpf (0-2); WBC 0-2 wbc/hpf (0-5)
[2018-02-12 20:32] LABS: INTERNATIONAL NORM RATIO 0.9 (2.0-3.5)
[2018-02-12 20:42] LABS: LIPASE 107 U/L (73-393)
[2018-02-12 20:44] LABS: TROPONIN I < 0.015 ng/ml (<0.045)
[2018-02-12 20:56] LABS: ALBUMIN 3.2 gm/dl (3.1-4.5); ALKALINE PHOSPHATASE 90 U/L (45-117); BUN 11 mg/dl (7-24); CHLORIDE 90 mmol/L (98-107); CREATININE 1.13 mg/dL (0.70-1.30); SGOT/AST 13 IU/L (3-35); SGPT/ALT 21 U/L (12-78); SODIUM 131 mmol/L (136-145); TOTAL PROTEIN 8.2 gm/dL (6.4-8.2)
[2018-02-12 21:40] VITALS: BP 133/75
[2018-02-13] VITALS: BP 157/76
[2018-02-13 07:04] LABS: BASO # 0.1 10*3/uL (0.0-0.1); BASO % 0.8 % (0.0-1.0); EOS # 0.4 10*3/uL (0.0-0.4); EOS % 4.1 % (1.0-4.0); HEMATOCRIT 42.1 % (42.0-52.0); HEMOGLOBIN 11.5 g/dl (14.0-18.0); LYMPH # 0.7 10*3/uL (1.3-4.4); LYMPH % 8.6 % (27.0-41.0); MEAN CORPUSCULAR HGB CONC 27.3 g/dl (33.0-37.0); MEAN PLATELET VOLUME 9.5 fl (9.6-12.3); MONO # 0.8 10*3/uL (0.1-1.0); MONO % 8.8 % (3.0-9.0); NEUT # 6.6 10*3/uL (2.3-7.9); NEUT % 76.9 % (47.0-73.0); PLATELET COUNT AUTOMATED 305 10*3/uL (130-400); RED CELL DISTRI WIDTH 17.1 % (0-14.5); WHITE BLOOD COUNT 8.6 10*3/uL (4.8-10.8)
[2018-02-13 07:05] LABS: BUN 11 mg/dl (7-24); CHLORIDE 90 mmol/L (98-107); PHOSPHOROUS 4.1 mg/dL (2.5-4.9); SODIUM 131 mmol/L (136-145)
[2018-02-13 07:16] LABS: MEAN CELL VOLUME 84.2 fl (80.0-94.0)
[2018-02-13 12:55] VITALS: BP 149/106
[2018-02-13 16:00] VITALS: BP 153/93
== END 2018-02-13 19:33 | disposition left against medical advice (07) | DRG 637 ==
LOC: ED 19:35 → EDHOLD 20:42 → 4E 20:42
PROVIDERS: Emergency Medicine Emergency Medical Services; Student in an Organized Health Care Education/Training Program
DX: E11.622 Type 2 diabetes mellitus with other skin ulcer (principal); L89.513 Pressure ulcer of right ankle, stage 3; R65.11 Systemic inflammatory response syndrome (SIRS) of non-infectious origin with acute organ dysfunction; L89.893 Pressure ulcer of other site, stage 3; L97.312 Non-pressure chronic ulcer of right ankle with fat layer exposed; E87.2 Acidosis; I50.32 Chronic diastolic (congestive) heart failure; L97.929 Non-pressure chronic ulcer of unspecified part of left lower leg with unspecified severity; E44.0 Moderate protein-calorie malnutrition; J96.11 Chronic respiratory failure with hypoxia; E66.2 Morbid (severe) obesity with alveolar hypoventilation; E87.1 Hypo-osmolality and hyponatremia; Z68.43 Body mass index [BMI] 50.0-59.9, adult; G47.33 Obstructive sleep apnea (adult) (pediatric); E87.8 Other disorders of electrolyte and fluid balance, not elsewhere classified; R31.21 Asymptomatic microscopic hematuria; R81 Glycosuria; I87.2 Venous insufficiency (chronic) (peripheral); E11.41 Type 2 diabetes mellitus with diabetic mononeuropathy; J44.9 Chronic obstructive pulmonary disease, unspecified; D63.8 Anemia in other chronic diseases classified elsewhere; E11.65 Type 2 diabetes mellitus with hyperglycemia; E78.5 Hyperlipidemia, unspecified; E11.51 Type 2 diabetes mellitus with diabetic peripheral angiopathy without gangrene; K21.9 Gastro-esophageal reflux disease without esophagitis; I11.0 Hypertensive heart disease with heart failure; Z82.49 Family history of ischemic heart disease and other diseases of the circulatory system; Z83.3 Family history of diabetes mellitus; Z85.6 Personal history of leukemia; Z83.6 Family history of other diseases of the respiratory system; Z71.6 Tobacco abuse counseling; Z99.81 Dependence on supplemental oxygen; Z79.4 Long term (current) use of insulin; Z79.899 Other long term (current) drug therapy